=== PATIENT | female | born 1975 | race Caucasian/White ===

== ENCOUNTER → 2019-07-15 10:13 | Outpatient (BNVA) | payer OTHER, SELFPAY | PROVIDERS: Family Provider Family Medicine; PCP Emergency Medicine; Visit Provider Nurse Practitioner Family | DX: R10.9 Unspecified abdominal pain (principal); M54.5 Low back pain; R19.8 Other specified symptoms and signs involving the digestive system and abdomen; F41.9 Anxiety disorder, unspecified; R11.10 Vomiting, unspecified; R19.7 Diarrhea, unspecified | CPT/HCPCS: 81003 ==

== ENCOUNTER → 2019-07-16 10:07 | Outpatient (BNVA) | payer OTHER, SELFPAY | PROVIDERS: Family Provider Family Medicine; PCP Emergency Medicine; Visit Provider Nurse Practitioner Family | DX: R19.8 Other specified symptoms and signs involving the digestive system and abdomen (principal) | CPT/HCPCS: 83630; 87505 ==

== ENCOUNTER → 2022-04-27 11:10 | Outpatient (BNVA) | payer OTHER, SELFPAY | PROVIDERS: Family Provider Family Medicine; Visit Provider Emergency Medicine | DX: R31.9 Hematuria, unspecified (principal); R11.0 Nausea; K52.9 Noninfective gastroenteritis and colitis, unspecified; R31.0 Gross hematuria | CPT/HCPCS: 81000; 87086 ==

== ENCOUNTER → 2022-09-03 14:40 | Outpatient (BNVA) | payer OTHER, SELFPAY | PROVIDERS: Family Provider Family Medicine; Visit Provider Podiatrist Foot & Ankle Surgery | DX: M79.672 Pain in left foot (principal); M54.16 Radiculopathy, lumbar region; Z86.69 Personal history of other diseases of the nervous system and sense organs; M79.671 Pain in right foot; M25.571 Pain in right ankle and joints of right foot | CPT/HCPCS: 73610; 73630 ==

== ENCOUNTER 2022-10-15 14:54 | Outpatient (CLI) | payer OTHER, SELFPAY ==
--- NOTE | 2022-10-15 15:15 | MR_ITS ---
WS: [id number] MRI CERVICAL SPINE NONCONTRAST HISTORY: M54.12 - Radiculopathy, cervical region COMPARISON: None available. Technique: Multiplanar, multisequence noncontrast imaging of the cervical spine. Less than 2 mm anterolisthesis of C3. Asymmetric disc space narrowing at C5-6. There is mild to moder ate disc space narrowing throughout the cervical spine with osteophytic ridging. Signal within the cervical cord is normal. Visualized posterior fossa is unremarkable. Craniocervical junction, C1 and C2 relationship, odontoid process and soft tissues are normal. C2-C3: Small central disc protrusion. C3-C4: Mild annular disc bulge with a central disc protrusion. Small bilateral foraminal osteophytes mild foraminal stenosis. C4-C5: Mild osteophytic ridging with mild foraminal stenosis and mild facet arthritis. C5-C6: Moderate osteophytic ridging and disc osteophyte complexes. Disc osteophyte contacts and defor ms the ventral thecal sac. Moderate central with severe bilateral foraminal stenosis and mild facet a rthritis. C6-C7: Diffuse osteophytic ridging with a central to LEFT paracentral disc protrusion. Moderate centr al stenosis. Bilateral foraminal osteophytes causing moderate stenosis. Mild facet arthritis. C7-T1: Mild osteophytic ridging and disc disease. Very mild central stenosis with moderate to severe foraminal stenosis. Nerve root sleeve diverticulum on the LEFT at T1-2. RIGHT paracentral disc protrusion at T1-2. Additi onal central disc protrusion at T2-3. MR/MR cervical spin wo con* [id number] IMPRESSION: 1. Advanced cervical spondylosis. Multilevel central and foraminal areas of st enosis due to osteophyte and disc disease and mild facet arthritis. 2. Moderate central with severe bilateral foraminal stenosis at C5-6. Central disc osteophyte and foraminal osteophytes. 3. Central to LEFT paracentral disc protrusion at C6-7. Moderate central and b ilateral foraminal stenosis. 4. Mild central stenosis with moderate to severe foraminal stenosis at C7-T1 p redominantly due to osteophytes. 5. Small bilateral foraminal osteophytes at C3-4 and C4-5. 6. Additional central disc protrusion at T2-3.
== END 2022-10-15 14:55 | disposition home or self-care (01) ==
LOC: RAD 15:00
PROVIDERS: Family Provider Family Medicine; PCP Anesthesiology Pain Medicine; Visit Provider Anesthesiology Pain Medicine
DX: M47.812 Spondylosis without myelopathy or radiculopathy, cervical region (principal); M47.892 Other spondylosis, cervical region; M48.02 Spinal stenosis, cervical region; M51.24 Other intervertebral disc displacement, thoracic region
CPT/HCPCS: 72040; 72110; 72141

== ENCOUNTER 2023-01-27 07:52 | Outpatient (CLI) | payer OTHER, SELFPAY ==
--- NOTE | 2023-01-27 08:01 | MR_ITS ---
WS: [id number] MRI LUMBAR SPINE NONCONTRAST HISTORY: M54.16 - Radiculopathy, lumbar region COMPARISON: Radiographs 09/27/2022 TECHNIQUE: Sagittal and axial multisequence imaging is submitted. Mild anterior wedging of T12 with no edema. S1 is partially lumbarized. There is a rudimentary disc a t S1-S2. Disc spaces are mildly desiccated and narrowed throughout the lumbar spine, most significant at L5-S1 . Small amount of reactive marrow edema in the right lateral endplates of L5 and S1. Conus terminates normally at L1-2 disc level. L1-L2: Mild annular disc bulging. No stenosis L2-L3: Normal. L3-L4: Mild annular disc bulging encroaching upon the ventral thecal sac. Very slight narrowing of th e subarticular recesses greatest on the left. Very mild bilateral foraminal narrowing. L4-L5: Mild annular disc bulging with moderate ligamentum flavum and facet arthritis. Mild central, b ilateral subarticular recess and foraminal stenosis. L5-S1: Diffuse annular disc bulging. Central to right paracentral disc protrusion causing deformity o f the thecal sac and also of the right S1 nerve root. Moderate central, bilateral subarticular recess and right foraminal stenosis. Disc also contacts the exiting right L5 nerve root. Mild left foramina l stenosis. S1-S2: Annular disc bulging with a moderate size central to right paracentral disc protrusion. Slight ly greater contact on the S2 nerve root. Mild bilateral foraminal stenosis. Rajesh's lobe of the liver. IMPRESSION: 1. S1 vertebral body appears lumbarized with a rudimentary S1-S2 disc. If surgery is contemplated in this patient this will be important numbering pattern to review. 2. L5-S1: Moderate size central to right paracentral disc protrusion. There is significant deformity the thecal sac and contact on the right S1 nerve root. Moderate central, bilateral subarticular reces s and right foraminal stenosis. 3. S1-S2: Moderate size central to right paracentral disc protrusion slightly greater contact on the S2 nerve root. Mild bilateral foraminal stenosis. 4. Mild bilateral foraminal and subarticular recess narrowing at L3-4. 5. L4-5: Mild central, bilateral subarticular recess and foraminal stenosis.
== END 2023-01-27 07:53 | disposition home or self-care (01) ==
PROVIDERS: PCP Anesthesiology Pain Medicine; Visit Provider Anesthesiology Pain Medicine
DX: M54.16 Radiculopathy, lumbar region (principal); M51.27 Other intervertebral disc displacement, lumbosacral region; M48.07 Spinal stenosis, lumbosacral region
CPT/HCPCS: 72148